=== PATIENT | female | born 1955 | race Caucasian/White ===

== ENCOUNTER → 2016-08-25 | Outpatient (CLI) | payer BC, OTHER ==
--- NOTE | ~2016-08-25 | ECH ---
Transthoracic Echocardiography Report (TTE) Demographics Patient Name LAWRENCE PETTY Date of Study 08/25/2016 Patient Number [id number] Visit Number [id number] Date of 1955 Room Number Accession Number [id number] Gender Female Age 61 year(s) Referring Sarah Zhao MD Sheet Manufacturing Supervisor Yenifer Browning [facility] Physician Physician Nancy Garrison MD Field Specialist Physician Josh Supervising Ordering Physician Sarah Zhao MD, MD/P Nurse Stress Private Inquiry Agent Conclusions Contractility Score Summary Normal Left Ventricular contractility was noted. Summary Technically adequate exam. The estimated left ventricular ejection fraction is 65%. Diastolic assessment reveals Grade I diastolic dysfunction. Normal right ventricle structure and function. The left atrium is mildly dilated by LA volume index measurement. The interatrial septum appears mildly aneurysmal. There is no evidence of patent foramen ovale or atrial septal defect by color Doppler. Moderate prolapse of both mitral valve leaflets. Severe mitral regurgitation by color Doppler. There is reversal in the pulmonary vein flow. There is mild aortic regurgitation by color Doppler. Mild tricuspid regurgitation by color Doppler. There is moderate pulmonary hypertension. The pulmonary pressure (RVSP) is 49mmHg. Mild pulmonic valve regurgitation by color Doppler. Recommendation The patient will be given the results of this study by the physician who ordered the exam. Procedure Type of Study TTE procedure:Echo Complete SF. Procedure Date Date: 08/25/2016 Start: 01:20 PM Technical Quality: Adequate visualization Indications:Mitral valve prolapse and Mitral Regurgation. Appropriate Use Criteria: 9 Height: 62 inches Weight: 160 pounds BSA: 1.74 m Rhythm: Within normal limits HR: 72 bpm BP: 113/57 mmHg M-Mode/2D Measurements LV Diastolic Dimension: 4.67 cm LV Systolic Dimension: 2.28 cm LV Septum Diastolic: 0.85 cm LV PW Diastolic: 0.78 cm AO Root Dimension: 2.4 cm Cardiac Output: 4.39 l/min LA Dimension: 3.95 cm Cardiac Index: 2.52 l/min*m RV Diastolic Dimension: 3.08 cm LA volume index: 37 ml/m LVOT: 2 cm LVOT VTI: 19.44 cm RV Base: 3.3 cm LV Stroke volume: 61.04 ml RV Mid: 2.7 cm LV Stroke volume index: 35.08 ml/m RV Length: 5.9 cm TAPSE: 2.5 cm Doppler Measurements AV Peak Velocity: 1.28 m/s MV Peak E-Wave: 0.78 m/s AV Peak Gradient: 6.55 mmHg MV Peak A-Wave: 0.84 m/s AV Mean Gradient: 3.09 mmHg MV E/A Ratio: 0.93 LVOT Peak Velocity: 0.94 m/s AV Area (Continuity):2.43 cm AV P1/2t: 603.8 msec TR Velocity:3.4 m/s PV Peak Velocity: 0.83 m/s TR Gradient:46.24 mmHg PV Peak Gradient: 2.76 mmHg Estimated RAP:3 mmHg Estimated PASP: 49.24 mmHg Estimated RVSP: 49 mmHg RA Area: 14.05 cm Findings Left Ventricle The left ventricle is normal in size . Diastolic assessment reveals Grade I diastolic dysfunction. Right Ventricle Normal right ventricle structure and function. Left Atrium The left atrium is mildly dilated by LA volume index measurement. The interatrial septum appears mildly aneurysmal. There is no evidence of patent foramen ovale or atrial septal defect by color Doppler. Right Atrium Normal right atrial size. Mitral Valve Moderate thickening of the mitral valve leaflets. Moderate prolapse of both mitral valve leaflets. Severe mitral regurgitation by color Doppler. Aortic Valve Normal aortic valve structure and function. There is mild aortic regurgitation by color Doppler. Tricuspid Valve Normal tricuspid valve structure and function. Mild tricuspid regurgitation by color Doppler. There is moderate pulmonary hypertension. The pulmonary pressure (RVSP) is 49mmHg. Pulmonic Valve Normal pulmonic valve structure and function. Mild pulmonic valve regurgitation by color Doppler. Pericardial Effusion No evidence of pericardial effusion. Miscellaneous Visualized portions of the aortic root and ascending aorta appear normal in size. There is reversal in the pulmonary vein flow. Contractility Score LV regional wall motion:(0-Non visualized 1-Normal 2-Hypokinesis 3-Akinesis 4-Dyskinesis 5-Aneurysm) Signature
== END | disposition home or self-care (01) ==
LOC: CARD 13:00
DX: R93.1 Abnormal findings on diagnostic imaging of heart and coronary circulation (principal); I34.1 Nonrheumatic mitral (valve) prolapse; I34.0 Nonrheumatic mitral (valve) insufficiency; I35.1 Nonrheumatic aortic (valve) insufficiency; I07.1 Rheumatic tricuspid insufficiency; I37.1 Nonrheumatic pulmonary valve insufficiency; I27.2 Other secondary pulmonary hypertension; I51.89 Other ill-defined heart diseases

== ENCOUNTER 2016-09-13 06:57 | Day surgery (SDC) | payer BC, OTHER ==
[~2016-09-13] VITALS: Ht 188 cm; Wt 74.0 kg
--- NOTE | ~2016-09-13 | ECH ---
Transesophageal Echocardiography Report (YU) Demographics Patient Name LAWRENCE PETTY Date of Study 09/13/2016 Patient Number [id number] Visit Number [id number] Date of 1955 Room Number Accession Number [id number] Gender Female Age 61 year(s) Referring King Alfredo Rodrigues MD Recruitment Coordinator Cathryn Jasso Physician Sarah Zhao MD [facility] Physician Interpreting King Alfredo Rodrigues MD Electric Powerline Examiner Physician Supervising Ordering Physician King Alfredo Rodrigues MD, MD/P Nurse Stress Nuclear Plant Technical Advisor Conclusions Summary Informed consent obtained. Transesophageal echocardiogram was done under moderate sedation . The estimated left ventricular ejection fraction is 60%. Informed consent was obtained, bubble study was done, there is no evidence for a PFO or ASD. Moderate prolapse of both mitral valve leaflet(s). Moderate-severe mitral regurgitation by color Doppler. Procedure Type of Study YU procedure:YU SF. Procedure Date Date: 09/13/2016 Start: 09:45 AM Technical Quality: Good visualization Indications:Mitral Regurgation and Mitral valve prolapse. Appropriate Use Criteria: 9 Height: 62 inches Weight: 162 pounds BSA: 1.75 m Rhythm: NSR HR: 72 bpm BP: 156/88 mmHg O2 Saturation: 97 % YU Performed By: Javid Welsh MD Type of Anesthesia: Moderate sedation Findings Left Atrium Informed consent was obtained, bubble study was done, there is no evidence for a PFO or ASD. Mitral Valve Moderate prolapse of both mitral valve leaflet(s). Moderate-severe mitral regurgitation by color Doppler. Aortic Valve Normal aortic valve structure and function. Tricuspid Valve Normal tricuspid valve structure and function. Pulmonic Valve The pulmonic valve is not well visualized. Miscellaneous Normal aorta. Signature
== END 2016-09-13 12:42 | disposition home or self-care (01) ==
LOC: SSS 06:57
PROC: B245ZZ4 Ultrasonography of Left Heart, Transesophageal (ICD-10-PCS; principal; 2016-09-13)
DX: I34.1 Nonrheumatic mitral (valve) prolapse (principal); I34.0 Nonrheumatic mitral (valve) insufficiency

== ENCOUNTER → 2016-10-08 | Outpatient (CLI) | payer BC | END | disposition home or self-care (01) | LOC: RAD.S 12:57 | DX: Z01.818 Encounter for other preprocedural examination (principal) ==

== ENCOUNTER 2016-10-18 05:59 | Day surgery (SDC) | payer BC ==
[~2016-10-18] VITALS: Ht 157.5 cm; Wt 73.6 kg
--- NOTE | ~2016-10-18 | CATH ---
Cardiac Diagnostic Report Demographics Patient Name JOVANNY Zhao Gender Female Date of 1955 Age 61 year(s) Patient Number [id number] Date of Study 10/18/2016 Visit Number [id number] Room Number Corporate ID Ht 157.48 cm Wt 72.12 kg Accession Number [id number] BSA 1.73 m kg/m Referring Sarah Zhao MD Primary Physician Physician Performing King Alfredo Rodrigues MD Secondary Physician Physician Diagnostic King Alfredo Rodrigues MD Assisting Physician Physician Interventional Physician Webmaster Physician Findings and Conclusions Diagnostic Findings and Conclusion Minimal single vessel nonobstructive coronary artery disease. Diagnostic Recommendations Proceed with mitral valve surgery. Procedure Description The patient was brought to the diagnostic cardiac catheterization laboratory in the fasting, non-sedated state. Informed consent was obtained in the written and verbal form after the risks and benefits were explained. The patient had no further questions and agreed to proceed. The planned puncture-incision site(s) were clipped and prepped with ChloraPrep and draped in the usual sterile manner. Conscious sedation, supplemental oxygen, and pain control medications were delivered by a registered nurse under physician guidance. Surface ECG rhythm, blood pressure measurement, and pulse oximetry were monitored throughout the procedure. Arterial access. The right radial access site was infiltrated with lidocaine. The vessel was entered with the Seldinger technique. A 6F sheath was advanced into the vessel and used for catheter placement. Left heart catheterization with ventriculography. A TIG catheter was advanced across the aortic valve to the left ventricle under fluoroscopic guidance. Resting hemodynamics were obtained. With the catheter at the left ventricular apex, contrast was injected. Images were obtained in SAMI projections. Post-ventriculography LV pressure was obtained. The catheter was gradually withdrawn into the aorta with continuous pressure recording. Selective left coronary angiography. A TIG catheter was advanced into the left coronary vessel ostium under Fluoroscopic guidance. Contrast was injected by hand. Images were obtained in multiple projections. Selective right coronary angiography. A TIG catheter was advanced into the right coronary vessel ostium under fluoroscopic guidance. Contrast was injected by hand. Images were obtained in multiple projections. Hemostasis: The sheath was removed and a TR Band was placed. Hemostasis was achieved. The patient was transferred to the pre/post surgery nursing floor via cart accompanied by a nurse. The patient left the laboratory in stable condition. Procedure Procedure Type Diagnostic procedure:Ventriculogram:, Left, Angiography:, Coronary Angios /[facility] Indications: Moderate Mitral Regurgitation and Increased shortness of breath. The procedure was explained in detail to the patient. Risks, complications and alternative treatments were reviewed. Written consent was obtained. Medications Reviewed with Patient prior to Procedure. Complications: Non complication. Angiographic Findings Dominance: Right Cardiac Arteries and Lesion Findings LMCA: Normal (0% Stenosis). LAD: Normal (0% Stenosis). LCx: Normal (0% Stenosis). RCA: Abnormal. Lesion on Prox RCA: Proximal subsection.20% stenosis . Coronary Tree Procedure Data Procedure Date Date: 10/18/2016Start: 08:04 AMEnd: 08:30 AM Entry Locations - Percutaneous access was performed through the Right Radial artery (Primary location). A 6 Fr sheath was inserted. Hemostasis was successfully obtained using a TR band. Procedure Medications Order and Administration + + +---------+-------+ !Time !Medication !Dosage !Route ! + + +---------+-------+ !10/18/2016 07:48 AM !Versed !2 mg !I.V. ! + + +---------+-------+ !10/18/2016 07:48 AM !Fentanyl !50 mcg !I.V. ! + + +---------+-------+ !10/18/2016 07:48 AM !Sodium Chloride !10 ml !I.V. ! + + +---------+-------+ !10/18/2016 07:53 AM !Oxygen !2 l/min !NC ! + + +---------+-------+ Devices Used - A6 Fr6F TIG CATHETERwas used for:BilateralCoronary Angios. Contrast Material - Isovue 93081 ml Fluoroscopy Time: Diagnostic: 2:30 minutes. Total: 2:30 minutes. Fluoroscopy Dose: Diagnostic: 199 mGy. Total: 199 mGy. Estimated Blood Loss: 6 ml. Medical History Allergies - No known allergies. Risk Factors The patient risk factors include:last creatinine: 1 mg/dl and creatinine clearance: 67.26 ml/min. Admission Data Admission Date: 10/18/2016 Admission Time: 05:59 AM Insurance Payors: Private health insurance. Hemodynamics Condition: Rest O2 Consumption: Estimated: 157.78Heart Rate: 61 bpm Pressures (mmHg) +-----+ + !Site !Pressure ! +-----+ + !LV !118/1 ,13 ! +-----+ + !AO !101/59 (79) ! +-----+ + !LV !93/-1 ,3 ! +-----+ + !AO !98/48 (72) ! +-----+ + Valve Gradients and Areas + +---------+---------+---------+ +---------+ + !Valve !Peak !Mean !Area !Index !Flow !Source ! + +---------+---------+---------+ +---------+ + !Aortic !0 !0 ! ! ! ! ! + +---------+---------+---------+ +---------+ + !Aortic !0 !0 ! ! ! ! ! + +---------+---------+---------+ +---------+ + Shunts Oxygen Values O2 Capacity 178.16 O2 Consumption 157.78 Discharge Data Discharge Date: 10/18/2016 Hospital Status: Outpatient Signatures
== END 2016-10-18 11:05 | disposition home or self-care (01) ==
LOC: SSS 05:59
DX: I25.10 Atherosclerotic heart disease of native coronary artery without angina pectoris (principal); I34.0 Nonrheumatic mitral (valve) insufficiency